=== PATIENT | male | born 1945 | race Caucasian/White ===

== ENCOUNTER 2018-06-23 13:15 | Inpatient (IN) | payer OTHER ==
[2018-06-23] MEDS ORDERED: LORazepam 2 MG/ML VIAL ONE (13:27)
[2018-06-23] MEDS ORDERED: FENTANYL CITR 100 MCG/2 ML ONE (13:28)
[2018-06-23] MEDS ORDERED: NA CHLORIDE 0.9% 1,000 ML ONE (13:30)
[2018-06-23 14:00] LABS: Protime INR 0.99
[2018-06-23 14:10] LABS: Absolute Lymphocytes (CBC) 2.6 K/uL (0.7-4.9); Absolute Monocytes 0.5 K/uL (0.1-1.3); Absolute Neutrophil 5.6 K/uL (1.8-8.0); Basophils % 0.4 % (0-1.3); Eosinophils % 3.4 % (0-4.4); Hematocrit 36.2 % (39.6-49.0); Lymphocytes % 28.4 % (15.3-44.8); MCH 33.8 pg (27.0-35.0); MPV 7.9 fL (7.6-11.3); RBC Red Blood Cell Count 3.63 M/uL (4.33-5.43)
--- NOTE | 2018-06-23 14:11 | RAD REPORT ---
EXAM DESCRIPTION: CT - Head Brain Wo Cont - 06/23/2018 2:01 pm CLINICAL HISTORY: Altered mental status, CPR COMPARISON: None. TECHNIQUE: Axial 5 mm thick images of the head were obtained without IV contrast. All CT scans are performed using dose optimization technique as appropriate and may include automated exposure control or mA/KV adjustment according to patient size. FINDINGS: No intracranial hemorrhage is present. There is no mass effect, edema or shift of midline structures. Patient has a moderate atrophy and chronic ischemic change pattern. Focally more prominen t schema changes are present in the left basal ganglia and anterior limb internal capsule. Baseline f or the patient is unknown. There is no finding for a diffuse anoxic brain injury. No cortical edema o r sulcal effacement. Ventricles are in proportion to volume loss. No acute cortical based infarction seen. No abnormal extra-axial fluid collections. Mastoid air cells are clear. No air-fluid level in the paranasal sinuses. There is nasal passage and ethmoid opacification. There is opacification in the oropharynx. This may be related to resuscitation efforts. No acute bony findings. IMPRESSION: No cerebral edema or other findings of anoxic brain injury. Patient has moderate severity atrophy and chronic ischemic change. Nonhemorrhagic CVA changes could b e masked by the chronic ischemic change. Nasal passage in oropharynx opacification likely related to resuscitation efforts.
[2018-06-23 14:12] LABS: Magnesium 1.9 mg/dL (1.8-2.4); Troponin I 0.06 ng/mL (0.0-0.045)
[2018-06-23] MEDS ORDERED: D5 0.45 NS 1,000 ML IV ONE (14:15)
--- NOTE | 2018-06-23 14:51 | RAD REPORT ---
EXAM DESCRIPTION: RAD - Chest Single View - 06/23/2018 2:20 pm CLINICAL HISTORY: CPR, respiratory arrest COMPARISON: None. TECHNIQUE: AP portable chest image was obtained 1336 hours . FINDINGS: Resuscitation paddles are in place. Lung volumes are low. Lung base atelectasis is present . No diffuse pulmonary edema. Right infrahilar region is prominent. This can be re-evaluated with a f ollow-up chest film is obtained. Endotracheal tube is in good position with the tip at the top of the aortic arch. Central vasculature and lung markings are accentuated by semi upright positioning and s hallow inspiration. No pneumothorax or large pleural effusion. No acute bony abnormality seen. No acu te aortic findings suspected. IMPRESSION: Endotracheal tube in good position. Bilateral lung base atelectasis without diffuse pulmonary edema. Focal density in the right hilar region is probably summation artifact due to exam limitations. This can be re-evaluated at the time of follow-up chest imaging.
[2018-06-23 15:04] LABS: Urine RBC TNTC /HPF (NONE SEEN)
[2018-06-23 15:05] LABS: Urine Amorphous Sediment 1+ /HPF (NONE SEEN); Urine Bacteria <20 /HPF (NONE SEEN); Urine Culture Reflex Order NOT NEEDED
[2018-06-23] MEDS ORDERED: NA CHLORIDE 0.9% 500 ML ONE (15:24)
[2018-06-23 16:17] LABS: Arterial Blood Carboxyhemoglob 0.2 % (0-1.5); Blood Gas Oxyhemoglobin 97.7 % (94-97)
[2018-06-23 16:19] LABS: Arterial Blood Carboxyhemoglob 0.4 % (0-1.5); Blood Gas Oxyhemoglobin 98.2 % (94-97); Blood O2 Saturation 99.5 % (92-98.5)
--- NOTE | 2018-06-23 16:58 | ER ---
Nurse's Notes [facility] Name: Nabor Garcia Jr Age: 72 yrs Sex: Male : 1945 Arrival Date: 06/23/2018 Time: 13:16 Bed 3 Private MD: Diagnosis: Cardiac arrest;Cardiac arrhythmia, unspecified;Dehydration Presentation: 06/23 13:11 Presenting complaint: EMS states: called out for CPR by bystander at [facility], pt was sv sitting in a chair with snoring respirations, manual compressions started while AED was attached, defibrillated x2. On EMS arrival, Respirations 8-12, with a pulse, GCS-3, Ketamine 150 mg, Versed 5 mg, Succinylcholine 112 mg, pt intubated size-7.5, 25 \T\ teeth, Fentanyl 75 mcg given after intubation, BS-183, 18G R AC. ROSC achieved DEFENSE TRAVEL ADMINISTRATOR of EMS. Care prior to arrival: Oral intubation, CPR manually performed by bystander was defibrillated IV initiated. 18 GA, in the right antecubital area, Glucose check: 183 Oxygen administered. via AMBU bag. Compressions began at 12:18. 13:11 Method Of Arrival: EMS: [facility] sv 13:25 Acuity: AMANDEEP 1 iw 13:30 Transition of care: patient was not received from another setting of care. Onset of sv symptoms was June 23, 2018. Risk Assessment: Do you want to hurt yourself or someone else? Unable to obtain. Initial Sepsis Screen: Does the patient meet any 2 criteria? Temp <36.0*C (96.8*F)) or > 38.3*C (100.9*F). Yes Does the patient have a suspected source of infection? No. Patient's initial sepsis screen is negative. Historical: - Allergies: 13:48 Unable to obtain; sv - Home Meds: 13:48 Unable to obtain [Active]; sv - PMHx: 13:48 Unable to obtain; sv - PSHx: 13:48 Unable to obtain; sv - Immunization history:: Adult Immunizations unknown. - Social history:: Smoking status: unknown. - Ebola Screening: : Unable to complete screening because patient is unresponsive, patient is intubated. - Family history:: not pertinent. - Hospitalizations: : No recent hospitalization is reported. Screenin:47 Abuse screen: unknown. Nutritional screening: unknown. Tuberculosis screening: unknown. sv Fall Risk No fall in past 12 months (0 pts). Secondary diagnosis (15 points) impaired mobility, intubated. IV access (20 points). Ambulatory Aid- None/Bed Rest/Nurse Assist (0 pts). Gait- Impaired (20 pts.). Mental Status- Overestimates/Forgets Limitations (15 pts.). Total Alcantar Fall Scale indicates High Risk Score (45 or more points). Fall prevention measures have been instituted. Side Rails Up X 2 Placed Close to Nursing Station Frequent Obs/Assessments Occuring As available patient and family educated on Fall Prevention Program and Strategies. Assessment: 13:12 CPR assessment: unresponsive, no respiratory effort, intubated, Ambu ventilation. sv Cardiac rhythm is SR. General: Appears ill, Behavior is unresponsive. intubated. Neuro: Level of Consciousness is unresponsive, Oriented to none intubated. EENT: appears pt bit his upper lip and tongue. Respiratory: Airway via oral intubation Respiratory effort is even, Respiratory pattern is symmetrical. Derm: Skin is pale. 13:46 Reassessment: Ok to place Barehugger per Dr Kearney. sv 14:00 Reassessment: Patient appears in no apparent distress at this time. No changes from sv previously documented assessment. Pt remains intubated. NGT and OGT attempted x 4 by myself and AISHA Thompson RN but unsuccessful. 14:19 Reassessment: Dr Kearney and Cely QUIROZ at bedside to placed central line. sv 14:25 Reassessment: IVF placed on an IV warmer. sv 14:37 Reassessment: Notified PARISA LEONARD of a critical lab alert for Lactate of 4.8. rb1 15:00 Reassessment: Patient appears in no apparent distress at this time. No changes from sv previously documented assessment. Pt remains intubated. 15:44 Reassessment: Stormy at bedside getting a repeat ABG. sv 16:00 Reassessment: Pt's sister Marilia Womack is at bedside. . Pt's friend wolfgang stated she witnessed everything. Stated that he was carrying a box of books and stated that he needed to sit down because he didn't feel good, she turned around away from him and then heard him snoring and she turned back around and saw his eyes roll back. They put him on the ground and he did not have a pulse, they called 911 while someone was getting the AED. 16:27 Reassessment: Dr Kearney at bedside speaking with family. sv 16:28 Reassessment: Patient appears in no apparent distress at this time. No changes from sv previously documented assessment. Pt remains intubated. 17:10 Reassessment: Patient appears in no apparent distress at this time. Pt diaphoretic, sv Rectal temp 96.9. Informed Dr Kearney. 18:08 Reassessment: Patient appears in no apparent distress at this time. No changes from sv previously documented assessment. Pt remains intubated. 18:30 Reassessment: Pt awake and attempting to get out of bed. Dr Kearney called to bedside. Pt sv is confused. Medication orders received. 18:40 Reassessment: Patient appears in no apparent distress at this time. Dr Arauz informed sv pt had woken up, stated Dr Kearney had informed her as well. 18:52 Reassessment: Carotid doppler being done at this time. sv 19:10 General: Appears. Pain: Unable to use pain scale. Patient is intubated. rr5 19:10 Neuro: Level of Consciousness is unresponsive, Oriented to none. Cardiovascular: rr5 Capillary refill < 3 seconds Patient's skin is warm and dry. Respiratory: Airway via oral intubation Respiratory effort is even, Respiratory pattern is symmetrical. GI: Abdomen is flat. GI: Oral gastric tube in place, Site clean. : Garcia in place. EENT: No signs and/or symptoms were reported regarding the EENT system. Derm: Skin is pale. Musculoskeletal: No signs and/or symptoms reported regarding the musculoskeletal system. Vital Signs: 13:12 BP 115 / 80; Pulse 88; Resp 16; Pulse Ox 98% on BVM; sv 13:25 BP 113 / 75; Pulse 82; Resp 16 A; Pulse Ox 100% on ETT vent; iw 13:30 BP 107 / 74; Pulse 86; Resp 14; Temp 95.5(C); Pulse Ox 100% on ETT vent; sv 14:05 BP 103 / 70; Pulse 77; Resp 18; Temp 94.8(C); Pulse Ox 100% on 100% FiO2 ETT vent; ph 15:00 BP 144 / 91; Pulse 78; Resp 16; Temp 95(C); Pulse Ox 100% on 100% FiO2 ETT vent; sv 15:30 BP 148 / 96; Pulse 81; Resp 16; Temp 95.4(C); Pulse Ox 100% on 100% FiO2 ETT vent; sv 16:15 BP 143 / 92; Pulse 79 MON; Resp 16; Temp 96.3(C); Pulse Ox 100% on 40% FiO2 ETT vent; sv 16:33 BP 160 / 94; Pulse 84; Resp 16; Temp 96.6(C); Pulse Ox 99% on 40% FiO2 ETT vent; sv 17:11 BP 162 / 97; Pulse 82; Resp 16; Temp 97(C); Pulse Ox 100% on 40% FiO2 ETT vent; sv 17:26 BP 142 / 89; Pulse 75; Resp 16; Temp 97; Pulse Ox 100% on 40% FiO2 ETT vent; sv 18:00 BP 133 / 89; Pulse 72; Resp 16; Temp 97.1(C); Pulse Ox 100% on 40% FiO2 ETT vent; sv 18:41 Weight 90 kg; ph 18:45 BP 121 / 84; Pulse 66; Resp 16; Temp 97.2(C); Pulse Ox 100% on 40% FiO2 ETT vent; sv 19:10 BP 118 / 77; Pulse 63; Resp 16; Temp 97.3; Pulse Ox 100% on ETT vent; rr5 19:15 BP 120 / 84; Pulse 65; Resp 16 A; Temp 97.2(C); Pulse Ox 100% on ETT vent; tl2 19:30 BP 119 / 88; Pulse 65; Resp 16; Temp 97.2(C); Pulse Ox 100% on ETT vent; tl2 19:45 BP 129 / 87; Pulse 69; Resp 16; Temp 97.4(C); Pulse Ox 100% on ETT vent; tl2 20:00 BP 130 / 83; Pulse 67; Resp 16; Temp 97.4(C); Pulse Ox 100% on ETT vent; tl2 20:26 BP 144 / 93; Pulse 75; Resp 16; Pulse Ox 100% ; rr5 16:15 Sinus Rhythm sv Tyler Coma Score: 13:20 Eye Response: none(1). Verbal Response: none(1). Motor Response: none(1). Modifying sv Factors: Intubated. Total: 3. 15:39 Eye Response: none(1). Verbal Response: none(1). Motor Response: withdraws from rn pain(4). Total: 6. 16:31 Eye Response: none(1). Verbal Response: none(1). Motor Response: none(1). Modifying sv Factors: Intubated. Total: 3. 18:08 Eye Response: none(1). Verbal Response: none(1). Motor Response: none(1). Modifying sv Factors: Intubated. Total: 3. 19:10 Eye Response: none(1). Verbal Response: none(1). Motor Response: none(1). Total: 3. rr5 ED Course: 13:11 Maintain EMS IV. Dressing intact. Good blood return noted. Site clean \T\ dry. Gauge \T\ sv site: 18G R AC. 13:12 desk monitor on. Pulse ox on. NIBP on. Warm blanket given. Head of bed elevated. sv 13:16 Patient arrived in ED. rn 13:16 Vimal Kearney MD is Attending Physician. rn 13:16 Andree Mendiola RN is Primary Nurse. sv 13:20 Initial lab(s) drawn, by ED staff, sent to lab. sv 13:25 Triage completed. iw 13:25 Garcia cath inserted, using sterile technique, 16 Fr., by assembler crimper, balloon inflated, to sv gravity drainage, returned lee urine. Criticore. 13:25 Patient has correct armband on for positive identification. Placed in gown. Bed in low sv position. Side rails up X2. 13:30 Arm band placed on. sv 13:39 EKG done, by educational technologist. reviewed by Vimal Kearney MD. at1 13:45 Thermoregulation: Angel blanket applied. ph 14:20 Chest Single View Sent. sv 14:20 Head Brain Wo Cont Sent. sv 14:30 Assisted provider with central line placement. Set up central line tray. Triple lumen sv line placed in right femoral. Line placed by Cely ALVAREZ Placement verified by blood return, Dressed with Tegaderm, Blood was collected. Patient tolerated well. Before procedure, did Practitioner(s) obtain informed consent? No. Patient \T\ family education about procedure, CLABSI prevention and S/S of infection? No. Time-out/Briefing performed prior to start of procedure? Yes. Was handwashing/sanitizing done immediately prior to procedure? Yes. Was patient positioned to in a way to prevent air embolism? Yes. Was procedure site sterilized? Yes, with chlorhexidine. Was the site allowed to dry? Yes. Was local anesthetic and/or sedation utilized? Yes. During the procedure, did the Practitioner(s) maintain a sterile field? Yes. Were unused ports clamped during insertion? Yes. Was a 2nd qualified MD obtained after 3 unsuccessful insertion attempts? Yes. Was blood aspirated from each lumen? Yes. After the procedure, did the Practitioner(s) clean the site and apply a sterile dressing? Yes. 14:40 Head Brain Wo Cont In Process Unspecified. EDMS 14:42 Chest Single View In Process Unspecified. EDMS 15:30 NGT: inserted 14 Fr. other orally verified placement of air over stomach, verified sv return of gastric contents, done by Dr Kearney to intermittent suction. returned brown fluid. 15:42 Urine Culture Sent. sv 15:42 Blood Culture Sent. sv 16:00 One-on-one care X 180 minutes. sv 16:12 EKG done, by educational technologist. reviewed by Vimal Kearney MD. dt2 16:58 Dwayne Arauz DO is Hospitalizing Provider. rn 16:58 Janel Arauz MD is Hospitalizing Provider. rn 17:26 Awaiting bed assignment. sv 19:06 Report given to Lm MCCAULEY. sv 19:07 Primary Nurse role handed off by Andree Mendiola, PARISA sv 19:47 Lm Mehta, PARISA is Primary Nurse. rr5 20:26 Patient admitted, IV remains in place. intact, bleeding controlled, No redness/swelling rr5 at site. Restraints: 18:30 Non-Violent Restraint: Order obtained. Initiated on June 23, 2018 at 18:30 sv Restraint Education provided to family/significant other/legally authorized patient portal representative. Actions/Behavior observed: Confused/disoriented, has difficulty remembering/follow instructions, has impaired decision making, repeated attempts to get up from bed/chair w/o assistance, has decreased level of consciousness, unable to follow instructions, repeated attempts to remove/tamper lines/tubes/IV med devices \T\ wound dressing, repeated attempts to remove artifical airway/mechanical resp support, Less restrictive alternatives attempted: 1:1 patient care, reoriented to location, Alternative interventions: Ineffective. Clinical justification for use: airway protection, line protection, patient safety, Mental status: agitated/restless, confused, Cognition: poor judgement, poor safety awareness, impulsive, poor attention/concentration, unable to follow commands, short term memory loss, Circulation: Within defined parameters (based on Cardiovascular assessment) Skin integrity: Within defined parameters (based on Integumentary assessment) Signs of injury related to restraint: No injuries noted. Restraint status: Side rails up x 4 Started. Soft wrist restraint (Right) Started. Soft wrist restraint (Left) Started. Soft ankle restraint (Right) Started. Soft ankle restraint (Left) Started. 19:10 Non-Violent Restraint: Order Initiated on June 23, 2018 at 18:30 Restraint rr5 Education provided to family/significant other/legally authorized patient portal representative. Actions/Behavior observed: Confused/disoriented, has difficulty remembering/follow instructions, has impaired decision making, repeated attempts to get up from bed/chair w/o assistance, has decreased level of consciousness, unable to follow instructions, repeated attempts to remove/tamper lines/tubes/IV med devices \T\ wound dressing, repeated attempts to remove artifical airway/mechanical resp support, Less restrictive alternatives attempted: 1:1 patient care, reoriented to location, family at bedside, Alternative interventions: Ineffective. Clinical justification for use: airway protection, line protection, patient safety, Mental status: agitated/restless, confused, Cognition: poor judgement, poor safety awareness, impulsive, poor attention/concentration, unable to follow commands, short term memory loss, Circulation: Within defined parameters (based on Cardiovascular assessment) Skin integrity: Within defined parameters (based on Integumentary assessment) Signs of injury related to restraint: No injuries noted. Restraint status: Side rails up x 4 Soft wrist restraint (Right) Continued. Soft wrist restraint (Left) Continued. Soft ankle restraint (Right) Continued. Soft ankle restraint (Left). Administered Medications: 13:20 Drug: Ativan 1 mg Route: IVP; Site: right antecubital; ph 14:21 Follow up: Response: No adverse reaction sv 13:20 Drug: fentaNYL (PF) 75 mcg Route: IVP; Site: right antecubital; ph 14:21 Follow up: Response: No adverse reaction sv 13:24 Drug: NS 0.9% 1000 ml Route: IV; Rate: 1000 ml; Site: right antecubital; iw 14:00 Follow up: Response: No adverse reaction; IV Status: Completed infusion; IV Intake: sv 1000ml 14:15 Drug: D5-1/2 NS 1000 ml Route: IV; Rate: 125 ml/hr; Site: right antecubital; sv 20:40 Follow up: IV Status: Infusion continued upon admission rr5 18:35 Drug: Propofol 40 mg Route: IVP; Site: right femoral; ph 18:44 Follow up: Response: No adverse reaction; Patient is sedated ph 18:40 Drug: Propofol 5 mcg/kg/min {Note: initiated at 15 mcg/kg/min.} Route: IV; Rate: ph calculated rate; Site: right femoral; 20:40 Follow up: IV Status: Infusion continued upon admission rr5 Point of Care Testing: Blood Glucose: 13:20 Blood Glucose: 225 mg/dL; iw Ranges: Intake: 14:00 IV: 1000ml; Total: 1000ml. sv Output: 18:27 Urine: 700ml (Garcia); Total: 700ml. sv Ventilator: 16:15 Fi02: 40%; Rate: 16min; T.V.: 550ml; Peep: 5cm; Mode: CMV; sv 16:15 24-teeth sv Outcome: 16:58 Decision to Hospitalize by Provider. rn 20:15 Admitted to ICU accompanied by nurse, via stretcher, with oxygen, on monitor, Report rr5 called to iban RN 20:15 Condition: stable 20:15 Instructed on the need for admit. rr5 20:26 Outcome admitted to ICU rr5 20:50 Patient left the ED. rr5 Signatures: Dispatcher [employer] EDMS Andree Mendiola RN RN sv Williams, Irene, RN RN iw Vimal Kearney MD MD rn Gonzales, Amanda, can cleaner EKG Tat1 Nayely Gonzalez RN RN ph Sharron Katz, RN RN rb1 Annette Damon RN RN tl2 Phoebe Abel dt2 Lm Mehta RN RN rr5 Corrections: (The following items were deleted from the chart) 14:24 13:11 Presenting complaint: EMS states: called out for CPR by bystander at [facility], pt sv was sitting in a chair with snoring respirations, manual compressions started while AED was attached, defibrillated x2. On EMS arrival, Respirations 8-12, with a pulse, GCS-3, Ketamine 150 mg, Versed 5 mg, Succinylcholine 112 mg, pt intubated size-7.5, 25 \T\ teeth, Fentanyl 75 mcg given after intubation, BS-183, 18G R AC. sv 14:25 14:24 Ebola Screening: Unable to complete screening because sv sv 16:30 14:00 Reassessment: Patient appears in no apparent distress at this time. No changes sv from previously documented assessment. Pt remains intubated sv 16:35 16:00 Reassessment: Pt's sister Marilia Womack is at bedside. . sv sv 20:26 20:00 BP 144 / 93; Pulse 75bpm; Resp 16bpm; Pulse Ox 100%; rr5 rr5
--- NOTE | 2018-06-23 16:59 | EDPHYS ---
Physician Documentation [facility] Name: Nabor Garcia Jr Age: 72 yrs Sex: Male : 1945 Arrival Date: 06/23/2018 Time: 13:16 Bed 3 Private MD: ED Physician Vimal Kearney HPI: 06/23 15:39 This 72 yrs old Male presents to ER via EMS with complaints of CPR - with rn ROSC. 15:39 Preceding the arrest, the patient collapsed. The arrest occurred moravian. Pre-hospital rn course: The arrest was witnessed Bystanders at the scene performed CPR. EMS care prior to arrival: initiation of ACLS, intubation oxygen. The patient has not experienced similar symptoms in the past. Bystanders called 911 because was seated, began snoring, unresponsive, laid him down, began cpr, hooked up AED that recommended shock, administered shock, and 911 arrived, had pulse for EMS, normal rhythm, intubated prior to arrival. . Historical: - Allergies: 13:48 Unable to obtain; sv - Home Meds: 13:48 Unable to obtain [Active]; sv - PMHx: 13:48 Unable to obtain; sv - PSHx: 13:48 Unable to obtain; sv - Immunization history:: Adult Immunizations unknown. - Social history:: Smoking status: unknown. - Ebola Screening: : Unable to complete screening because patient is unresponsive, patient is intubated. - Family history:: not pertinent. - Hospitalizations: : No recent hospitalization is reported. ROS: 15:39 Unable to obtain ROS due to comatose state. rn Exam: 15:39 Constitutional: Thin male, minimally responsive to painful stimuli Head/Face: rn Normocephalic, atraumatic. ENT: + oral blood (presumably from EMS intubation) Cardiovascular: Regular rate and rhythm No pulse deficits. Respiratory: + coarse bilateral breath sounds Abdomen/GI: soft, non-tender, non-distended MS/ Extremity: Pulses equal, no cyanosis. + mottled extremities Neuro: Intubated and sedated (versed and ketamine), withdraws from pain and grimaces, but does not localize Vital Signs: 13:12 BP 115 / 80; Pulse 88; Resp 16; Pulse Ox 98% on BVM; sv 13:25 BP 113 / 75; Pulse 82; Resp 16 A; Pulse Ox 100% on ETT vent; iw 13:30 BP 107 / 74; Pulse 86; Resp 14; Temp 95.5(C); Pulse Ox 100% on ETT vent; sv 14:05 BP 103 / 70; Pulse 77; Resp 18; Temp 94.8(C); Pulse Ox 100% on 100% FiO2 ETT vent; ph 15:00 BP 144 / 91; Pulse 78; Resp 16; Temp 95(C); Pulse Ox 100% on 100% FiO2 ETT vent; sv 15:30 BP 148 / 96; Pulse 81; Resp 16; Temp 95.4(C); Pulse Ox 100% on 100% FiO2 ETT vent; sv 16:15 BP 143 / 92; Pulse 79 MON; Resp 16; Temp 96.3(C); Pulse Ox 100% on 40% FiO2 ETT vent; sv 16:33 BP 160 / 94; Pulse 84; Resp 16; Temp 96.6(C); Pulse Ox 99% on 40% FiO2 ETT vent; sv 17:11 BP 162 / 97; Pulse 82; Resp 16; Temp 97(C); Pulse Ox 100% on 40% FiO2 ETT vent; sv 17:26 BP 142 / 89; Pulse 75; Resp 16; Temp 97; Pulse Ox 100% on 40% FiO2 ETT vent; sv 18:00 BP 133 / 89; Pulse 72; Resp 16; Temp 97.1(C); Pulse Ox 100% on 40% FiO2 ETT vent; sv 18:41 Weight 90 kg; ph 18:45 BP 121 / 84; Pulse 66; Resp 16; Temp 97.2(C); Pulse Ox 100% on 40% FiO2 ETT vent; sv 19:10 BP 118 / 77; Pulse 63; Resp 16; Temp 97.3; Pulse Ox 100% on ETT vent; rr5 19:15 BP 120 / 84; Pulse 65; Resp 16 A; Temp 97.2(C); Pulse Ox 100% on ETT vent; tl2 19:30 BP 119 / 88; Pulse 65; Resp 16; Temp 97.2(C); Pulse Ox 100% on ETT vent; tl2 19:45 BP 129 / 87; Pulse 69; Resp 16; Temp 97.4(C); Pulse Ox 100% on ETT vent; tl2 20:00 BP 130 / 83; Pulse 67; Resp 16; Temp 97.4(C); Pulse Ox 100% on ETT vent; tl2 20:26 BP 144 / 93; Pulse 75; Resp 16; Pulse Ox 100% ; rr5 16:15 Sinus Rhythm sv Gormania Coma Score: 13:20 Eye Response: none(1). Verbal Response: none(1). Motor Response: none(1). Modifying sv Factors: Intubated. Total: 3. 15:39 Eye Response: none(1). Verbal Response: none(1). Motor Response: withdraws from rn pain(4). Total: 6. 16:31 Eye Response: none(1). Verbal Response: none(1). Motor Response: none(1). Modifying sv Factors: Intubated. Total: 3. 18:08 Eye Response: none(1). Verbal Response: none(1). Motor Response: none(1). Modifying sv Factors: Intubated. Total: 3. 19:10 Eye Response: none(1). Verbal Response: none(1). Motor Response: none(1). Total: 3. rr5 Ventilator: 16:15 Fi02: 40%; Rate: 16min; T.V.: 550ml; Peep: 5cm; Mode: CMV; sv 16:15 24-teeth sv Procedures: 15:13 Central Line: the site was prepped with in sterile fashion, chlorhexidine, a triple kb lumen catheter was inserted, in the right femoral vein, in 1 attempts. placement was verified, by blood return, the site was dressed with Tegaderm, using sterile technique, the patient tolerated the procedure, well. MDM: 13:16 Patient medically screened. rn 16:57 Differential diagnosis: arrythmia, cardiac arrest, respiratory arrest. Data reviewed: rn vital signs, nurses notes, lab test result(s), EKG, radiologic studies, CT scan, plain films, and as a result, I will admit patient. Counseling: I had a detailed discussion with the patient and/or guardian regarding: the historical points, exam findings, and any diagnostic results supporting the discharge/admit diagnosis, lab results, radiology results, the need for further work-up and treatment in the hospital. Response to treatment: the patient's symptoms have mildly improved after treatment, and as a result, I will admit patient. Admission orders: after a detailed discussion of the patient's condition and case, the admit orders are written by me. ED course: Admitted to Dr. Arauz, spoke with her \T\ [id number], admitted to ICU. . 06/23 13:18 Order name: Blood Culture Adult (2) rn 06/23 13:19 Order name: ABG rn 06/23 13:20 Order name: glucometer results - FOR PT WITH NO ID 06/23 13:31 Order name: Urine Dipstick--Ancillary (enter results) 06/23 13:40 Order name: ABG Arterial Blood Gas; Complete Time: 16:20 EDUT 06/23 13:44 Order name: Basic Metabolic Panel; Complete Time: 14:47 EDUT 06/23 13:44 Order name: Troponin I; Complete Time: 14:47 EDUT 06/23 13:44 Order name: Magnesium; Complete Time: 14:47 [facility] 06/23 13:44 Order name: Lactate; Complete Time: 14:47 [facility] 06/23 13:44 Order name: CBC with Automated Diff; Complete Time: 14:47 [facility] 06/23 13:44 Order name: Protime (+INR); Complete Time: 14:47 [facility] 06/23 13:44 Order name: PTT, Activated Partial Thromb; Complete Time: 14:47 EDUT 06/23 14:42 Order name: Blood Culture [facility] 06/23 14:43 Order name: Urine Microscopic Only; Complete Time: 15:38 [facility] 06/23 14:43 Order name: Urine Culture [facility] 06/23 15:02 Order name: Lactate; Complete Time: 15:59 06/23 15:33 Order name: ABG; Complete Time: 16:54 06/23 17:54 Order name: Thyroid Stimulating Hormone EDUT 06/23 17:54 Order name: Comprehensive Metabolic Panel [facility] 06/23 17:55 Order name: Comprehensive Metabolic Panel [facility] 06/23 13:41 Order name: Head Brain Wo Cont; Complete Time: 14:47 [facility] 06/23 13:41 Order name: Chest Single View; Complete Time: 14:58 EDUT 06/23 17:55 Order name: Comprehensive Metabolic Panel [facility] 06/23 17:55 Order name: Comprehensive Metabolic Panel [facility] 06/23 17:55 Order name: Creatine Phosphokinase [facility] 06/23 17:55 Order name: Creatine Phosphokinase EDMS 06/23 17:55 Order name: Creatine Phosphokinase EDMS 06/23 17:55 Order name: Creatine Phosphokinase EDMS 06/23 17:55 Order name: Lactate EDMS 06/23 17:55 Order name: Lactate EDMS 06/23 17:55 Order name: Lipid Profile EDMS 06/23 17:55 Order name: Lipid Profile EDMS 06/23 17:55 Order name: Magnesium EDMS 06/23 17:55 Order name: Magnesium EDMS 06/23 17:55 Order name: Magnesium EDMS 06/23 17:55 Order name: Magnesium EDMS 06/23 17:55 Order name: Phosphorus EDMS 06/23 17:55 Order name: Phosphorus EDMS 06/23 17:55 Order name: Phosphorus EDMS 06/23 17:55 Order name: Phosphorus EDMS 06/23 17:55 Order name: PTT, Activated Partial Thromb EDMS 06/23 17:55 Order name: PTT, Activated Partial Thromb EDMS 06/23 17:55 Order name: PTT, Activated Partial Thromb EDMS 06/23 17:55 Order name: PTT, Activated Partial Thromb EDMS 06/23 17:55 Order name: Troponin I EDMS 06/23 17:55 Order name: Troponin I EDMS 06/23 17:55 Order name: Troponin I EDMS 06/23 17:56 Order name: Troponin I EDMS 06/23 20:10 Order name: US EDMS 06/23 13:18 Order name: EKG; Complete Time: 14:59 rn 06/23 13:18 Order name: Cardiac monitoring; Complete Time: 14:19 rn 06 13:18 Order name: EKG - Nurse/Tech; Complete Time: 14:19 rn 06 13:18 Order name: IV Saline Lock; Complete Time: 14:19 rn 06 13:18 Order name: Labs collected and sent; Complete Time: 14:19 rn 06 13:18 Order name: NPO; Complete Time: 14:19 rn 06 13:18 Order name: O2 Per Protocol; Complete Time: 14:19 rn 06 13:18 Order name: O2 Sat Monitoring; Complete Time: 14:19 rn 06/23 13:18 Order name: Urine Dipstick-Ancillary (obtain specimen); Complete Time: 14:19 rn 06/23 17:23 Order name: EKG Electrocardiogram EDMS 06/23 17:54 Order name: CONS Physician Consult EDMS 06/23 17:54 Order name: CONS Physician Consult EDMS 06/23 18:45 Order name: Restraint:Non-Violent; Complete Time: 18:45 sv Administered Medications: 13:20 Drug: Ativan 1 mg Route: IVP; Site: right antecubital; ph 14:21 Follow up: Response: No adverse reaction sv 13:20 Drug: fentaNYL (PF) 75 mcg Route: IVP; Site: right antecubital; ph 14:21 Follow up: Response: No adverse reaction sv 13:24 Drug: NS 0.9% 1000 ml Route: IV; Rate: 1000 ml; Site: right antecubital; iw 14:00 Follow up: Response: No adverse reaction; IV Status: Completed infusion; IV Intake: sv 1000ml 14:15 Drug: D5-1/2 NS 1000 ml Route: IV; Rate: 125 ml/hr; Site: right antecubital; sv 20:40 Follow up: IV Status: Infusion continued upon admission rr5 18:35 Drug: Propofol 40 mg Route: IVP; Site: right femoral; ph 18:44 Follow up: Response: No adverse reaction; Patient is sedated ph 18:40 Drug: Propofol 5 mcg/kg/min {Note: initiated at 15 mcg/kg/min.} Route: IV; Rate: ph calculated rate; Site: right femoral; 20:40 Follow up: IV Status: Infusion continued upon admission rr5 Point of Care Testing: Blood Glucose: 13:20 Blood Glucose: 225 mg/dL; iw Ranges: Critical Glucose Levels:Adult <50 mg/dl or >400 mg/dl <40 mg/dl or >180 mg/dl Disposition: 16:57 Critical Care:. rn Disposition: 06/23/18 16:58 Hospitalization ordered by Janel Arauz for Inpatient Admission. Preliminary diagnosis are Cardiac arrest, Cardiac arrhythmia, unspecified, Dehydration. - Bed requested for Intensive Care Unit. - Status is Inpatient Admission. rr5 - Condition is Fair. - Problem is new. - Symptoms have improved. UTI on Admission? No Critical care time excluding procedures: 16:57 Critical care time: Bedside Care: 25 minutes, Consultation: 5 minutes, Family rn Intervention: 10 minutes. Total time: 40 minutes Addendum: 06/27/2018 07:02 Co-signature as Attending Physician, Vimal Kearney MD. r n Signatures: Dispatcher [employer] EDUT Cely Charlton FNP-C WINDER TENDER-Andree Ritter, RN Jayla Feliz RN Jocy Perdomo RN RN iw Nieto, Roman, MD MD rn Hall, Patricia, RN RN Lm Mehta RN RN rr5 Corrections: (The following items were deleted from the chart) 12 13:45 13:44 Blood Culture ordered. EDUT EDMS 14:25 14:24 Ebola Screening: Unable to complete screening because sv sv 15:06 14:59 Chest Single View+RAD.RAD.BRZ ordered. EDUT EDMS 15:08 14:58 Head Brain Wo Cont+CT.RAD.BRZ ordered. EDUT EDMS 15:18 14:59 BASIC METABOLIC PANEL+C.LAB.BRZ ordered. EDUT EDMS 15:19 14:59 CBC+H.LAB.BRZ ordered. EDUT EDMS 15:19 14:59 MAGNESIUM+C.LAB.BRZ ordered. EDUT EDMS 15:19 14:59 PROTIME (+INR)+COAG.LAB.BRZ ordered. EDUT EDMS 15:19 14:59 PTT, ACTIVATED+COAG.LAB.BRZ ordered. EDUT EDMS 15:19 14:59 TROPONIN (EMERG DEPT USE ONLY)+C.LAB.BRZ ordered. EDUT EDMS 15:19 15:02 UA MICROSCOPIC+U.LAB.BRZ ordered. EDUT EDMS 15:21 14:59 LACTATE+C.LAB.BRZ ordered. EDUT EDMS 15:21 15:02 Urine Culture+BA.LAB.BRZ ordered. EDUT EDMS 18:43 16:58 Hospitalization Ordered by Janel Arauz MD for Inpatient Admission. Preliminary dw diagnosis is Cardiac arrest; Cardiac arrhythmia, unspecified; Dehydration. Bed requested for Intensive Care Unit. Status is Inpatient Admission. Condition is Fair. Problem is new. Symptoms have improved. UTI on Admission? No. rn 20:50 18:43 06/23/2018 16:58 Hospitalization Ordered by Janel Arauz MD for Inpatient rr5 Admission. Preliminary diagnosis is Cardiac arrest; Cardiac arrhythmia, unspecified; Dehydration. Bed requested for Intensive Care Unit. Status is Inpatient Admission. Condition is Fair. Problem is new. Symptoms have improved. UTI on Admission? No. dw
[2018-06-23] MEDS ORDERED: ONDANSETRON 4 MG/2 ML VIAL IV PRN (17:50)
[2018-06-23] MEDS ORDERED: D50W 25 GM/50 ML SYRINGE IV PRN (17:57)
[2018-06-23] MEDS ORDERED: GLUCAGON 1 MG/VIAL IM PRN (17:57)
[2018-06-23] MEDS ORDERED: FENTANYL CITR 100 MCG/2 ML IV PRN (17:59)
[2018-06-23] MEDS ORDERED: MIDAZOLAM HCL 2 MG/2 ML INJ IV PRN (17:59)
--- NOTE | 2018-06-23 18:20 | P.HP ---
Certification for Inpatient Patient admitted to: Inpatient With expected LOS: >2 Midnights Patient will require the following post-hospital care: None Practitioner: I am a practitioner with admitting privileges, knowledge of patient current condition, hospital course, and medical plan of care. Services: Services provided to patient in accordance with Admission requirements found in Title 42 Section 412.3 of the Code of Federal Regulations Patient History Date of Service: 06/23/18 Primary Care Provider: Unknown Reason for admission: Cardiopulomary Arrest History of Present Illness: This is a 72-year-old male with unknown past medical history who presented to the ER, the nearby charge. Most of the history was collected via the ER physician and the EMS report along with the family member at bedside. Patient was noted to be at the taoism this afternoon where he had a witness cardiopulmonary arrest CPR was initiated by a bystander due to no pulse on an AED pad was connected to the patient. He d advised for a shock and patient was given an shock x1 in the chart. EMS then arrived at the scene where patient is GCS was less than 3 and patient was thus intubated at that time. Patient then was brought to the ER for further care. Patient does not have any other family member other than his [id number] at bedside at this time. Patient's in December of cancer. Patient was doing okay and was in general health according to the family member at bedside. In the ER patient remained intubated and sedated. Initial lab work was inconclusive and patient was admitted to the hospital for further workup and treatment for is cardiopulmonary arrest. Review of Systems 10-point ROS is otherwise unremarkable Physical Examination - Physical Exam General: Other (Intubated and sedated) HEENT: Atraumatic Neck: Supple, JVD not distended Respiratory: Normal air movement, Rhonchi/gurgles Cardiovascular: Regular rate/rhythm, Normal S1 S2 Gastrointestinal: Normal bowel sounds, Soft and benign, Non-distended Musculoskeletal: No clubbing, No swelling Integumentary: No rashes Neurological: Other (Pupils are sluggish, no cough reflex noted, patient not responding to painful stimuli at this time), Abnormal cranial nerve function, Abnormal reflexes - Studies Laboratory Data (last 24 hrs) 06/23/18 13:20: PT 11.7, INR 0.99, APTT 25.7 06/23/18 13:20: WBC 9.0, Hgb 12.3 L, Hct 36.2 L, Plt Count 189 06/23/18 13:20: Sodium 140, Potassium 4.0, BUN 19 H, Creatinine 1.60 H, Glucose 229 H, Magnesium 1.9, Troponin I 0.06 H 06/23/18 13:18: PT Cancelled, INR Cancelled, APTT Cancelled 06/23/18 13:18: WBC Cancelled, Hgb Cancelled, Hct Cancelled, Plt Count Cancelled 06/23/18 13:18: Sodium Cancelled, Potassium Cancelled, BUN Cancelled, Creatinine Cancelled, Glucose Cancelled, Magnesium Cancelled Assessment and Plan - Problems (Diagnosis) (1) Cardiopulmonary arrest Current Visit: Yes Status: Acute Plan: Witness cardiopulmonary arrest with successful resuscitation -patient currently intubated and sedated -will continue on mechanical ventilator at this time -pulmonology, cardiology, neurology is consulted at this -differential diagnosis include PE, NC, stroke, infectious etiology -will get CT of the head, echocardiogram, carotid Doppler, V/Q scan, MRI stroke protocol to rule out any did acute abnormality -patient placed on vent protocol at this time -Pepcid b.i.d. as well for GI prophylaxis -weight based Lovenox q.12 hr for possible PE (2) Acute respiratory failure Current Visit: Yes Status: Acute Plan: Hypoxic respiratory failure status post cardiopulmonary arrest status post shock x1 with successful resuscitation -See # 1 Qualifiers: Respiratory failure complication: hypoxia Qualified Code(s): J96.01 - Acute respiratory failure with hypoxia (3) HTN (hypertension) Current Visit: Yes Status: Chronic Qualifiers: Hypertension type: essential hypertension Qualified Code(s): I10 - Essential (primary) hypertension - Plan Will admit patient to the ICU for further care of his cardiopulmonary arrest. Initial head CT in the ER negative for any anoxic brain injury or edema. Will repeat in 48-72 hr here in the hospital. Discharge Plan: Other Plan to discharge in: Greater than 2 days - Advance Directives Does patient have a Living Will: No Does patient have a Durable POA for Healthcare: No - Code Status/Comfort Care Code Status Assessed: Yes Critical Care: Yes
[2018-06-23] MEDS ORDERED: PROPOFOL 1,000 MG/100 ML VIAL IV ONE (18:41)
[2018-06-23] MEDS ORDERED: PROPOFOL 1,000 MG/100 ML VIAL IV PRN (18:47)
[2018-06-23 19:29] LABS: Urine Blood 3+ (NEG); Urine Glucose TRACE (NEG); Urine Protein 2+ (NEG)
--- NOTE | 2018-06-23 19:36 | RAD REPORT ---
EXAM DESCRIPTION: US - CP - 06/23/2018 7:21 pm CLINICAL HISTORY: Cardiopulomary Arrest CVA COMPARISON: No comparisons TECHNIQUE: Real-time sonographic evaluation of both carotid systems was performed. Doppler interroga tion was performed with waveform tracing bilaterally. FINDINGS: Due to the patient's clinical status, the study was very limited. Mild hard plaque present in both carotid bulbs. Peak systolic and end diastolic velocity values and t he ICA/CCA ratios are in the non-hemodynamically significant range. Antegrade flow seen in both vertebral arteries. IMPRESSION: Very limited study was submitted due to the patient's current clinical status. Mild hard plaque is seen in both carotid bulbs. No hemodynamically significant stenosis is identified.
[2018-06-23] MEDS: INSULIN -REGULAR HUMAN 50 UNIT/0.5 ML ML SQ SCH (21:00)
[2018-06-23] MEDS: ENOXAPARIN 80 MG/0.8 ML SQ SCH (22:17)
[2018-06-23] MEDS: FAMOTIDINE 20 MG/2 ML VIAL IV SCH (22:17)
[2018-06-23] MEDS: NA CHLORIDE 0.9% 1,000 ML IV SCH (22:17)
[2018-06-23 23:49] LABS: Troponin I 0.99 ng/mL (0.0-0.045)
[2018-06-24] MEDS: NA CHLORIDE 0.9% 1,000 ML IV SCH ×4 (04:00→21:00)
[2018-06-24 04:39] LABS: Troponin I 0.94 ng/mL (0.0-0.045)
[2018-06-24 05:45] LABS: Arterial Blood Carboxyhemoglob 1.2 % (0-1.5); Blood Gas Oxyhemoglobin 97.5 % (94-97); Blood O2 Saturation 99.3 % (92-98.5)
[2018-06-24 06:08] LABS: Bilirubin Total 0.8 mg/dL (0.2-1.0); Magnesium 1.9 mg/dL (1.8-2.4); Phosphorus 3.3 mg/dL (2.5-4.9); Potassium 4.1 mmol/L (3.5-5.1); Protein, Total 5.9 g/dL (6.4-8.2)
[2018-06-24 06:38] LABS: Absolute Lymphocytes (CBC) 1.2 K/uL (0.7-4.9); Absolute Monocytes 0.7 K/uL (0.1-1.3); Absolute Neutrophil 7.5 K/uL (1.8-8.0); Basophils % 0.1 % (0-1.3); Eosinophils % 0.7 % (0-4.4); Hematocrit 32.5 % (39.6-49.0); Lymphocytes % 12.6 % (15.3-44.8); MCH 34.2 pg (27.0-35.0); MCV 98.4 fL (80-100); MPV 8.2 fL (7.6-11.3); Monocytes % 7.8 % (3.3-12.3); RBC Red Blood Cell Count 3.31 M/uL (4.33-5.43)
--- NOTE | 2018-06-24 07:20 | P.PN ---
Subjective Date of Service: 06/23/18 Patient's chart was reviewed. Patient had a cardiac arrest. Bystander CPR and defibrillation with an AED device. Patient was brought into the emergency room and intubated. Patient has been on sedation since then. Currently he is waking up in arousable. Will go ahead and switch him over to SIMV and then do a spontaneous breathing trial in the morning and hopefully we can extubate. He has had a couple runs of nonsustained V-tach. Cardiology consultation pending as patient may probably need further intervention including cardiac catheterization. EKG with some mild QT prolongation. Will monitor medications given. Review of Systems 10-point ROS is otherwise unremarkable (Sedated and intubated) Physical Examination - Vital Signs Temperature: 99.9 F Blood Pressure: 105/77 Pulse: 68 Respirations: 14 Pulse Ox (%): 100 - Physical Exam General: Other (Sedated & intubated) Respiratory: Clear to auscultation bilaterally, Normal air movement Cardiovascular: Regular rate/rhythm, Normal S1 S2, No murmurs Gastrointestinal: Soft and benign, Non-distended Musculoskeletal: No clubbing, No swelling, No contractures - Studies Laboratory Data (last 24 hrs) 06/23/18 13:20: PT 11.7, INR 0.99, APTT 25.7 06/23/18 13:20: WBC 9.0, Hgb 12.3 L, Hct 36.2 L, Plt Count 189 06/23/18 13:20: Sodium 140, Potassium 4.0, BUN 19 H, Creatinine 1.60 H, Glucose 229 H, Magnesium 1.9, Troponin I 0.06 H 06/23/18 13:18: PT Cancelled, INR Cancelled, APTT Cancelled 06/23/18 13:18: WBC Cancelled, Hgb Cancelled, Hct Cancelled, Plt Count Cancelled 06/23/18 13:18: Sodium Cancelled, Potassium Cancelled, BUN Cancelled, Creatinine Cancelled, Glucose Cancelled, Magnesium Cancelled Assessment & Plan - Problems (Diagnosis) (1) Acute respiratory failure Current Visit: Yes Status: Acute Qualifiers: Respiratory failure complication: hypoxia Qualified Code(s): J96.01 - Acute respiratory failure with hypoxia (2) Cardiopulmonary arrest Current Visit: Yes Status: Acute (3) HTN (hypertension) Current Visit: Yes Status: Chronic Qualifiers: Hypertension type: essential hypertension Qualified Code(s): I10 - Essential (primary) hypertension - Plan Plan: 1. Spontaneous breathing trial in the morning 2. Wean off of propofol 3. Cardiology consultation 4. Monitor electrolytes 5. Patient may need defibrillator placed pending cardiology workup 6. GI and DVT prophylaxis Discharge Plan: Home Plan to discharge in: Greater than 2 days - Advance Directives Does patient have a Living Will: No Does patient have a Durable POA for Healthcare: No - Code Status/Comfort Care Code Status Assessed: Yes Code Status: Full Code Critical Care: Yes Time Spent Managing PTS Care (In Minutes): 45
[2018-06-24] MEDS: LORazepam 2 MG/ML VIAL IV PRN ×2 (07:26→13:15)
[2018-06-24] MEDS: INSULIN -REGULAR HUMAN 50 UNIT/0.5 ML ML SQ SCH ×4 (07:30→18:00)
[2018-06-24] MEDS ORDERED: D5W 250 ML IV SCH (08:00)
--- NOTE | 2018-06-24 08:11 | RAD REPORT ---
EXAM DESCRIPTION: RAD - Chest Single View - 06/24/2018 6:16 am CLINICAL HISTORY: Intubated-F/U Chest pain. COMPARISON: Chest Single View dated 06/23/2018 FINDINGS: Portable technique limits examination quality. Since the most recent comparative study, improvement in lung aeration is noted. Tip of the ET tube is above the shelbie. Enteric tube coils in the stomach. The heart is normal in size. No displaced fract ures. IMPRESSION: Moderate improvement in lung aeration seen since the comparative study.
--- NOTE | 2018-06-24 08:29 | EKG ---
Test Date: 2018-06-23 Test Time: 16:03:49 Poultry Raiser: SULMA MEASUREMENT RESULTS: Intervals: Rate: 77 IN: 160 QRSD: 74 QT: 402 QTc: 454 [place]: P: 77 IN: 160 QRS: -1 T: 43 INTERPRETIVE STATEMENTS: Normal sinus rhythm Normal ECG Compared to ECG 06/23/2018 13:21:38 Atrial premature complex(es) no longer present ST (T wave) deviation no longer present Possible ischemia no longer present Prolonged QT interval no longer present Electronically Signed On 06-24-18 08:28:53 INFANT CAREGIVER by Geoffrey Velez
--- NOTE | 2018-06-24 08:31 | EKG ---
Test Date: 2018-06-23 Test Time: 13:21:38 Director Economic: ZACARIAS MEASUREMENT RESULTS: Intervals: Rate: 94 OK: 156 QRSD: 76 QT: 378 QTc: 472 [place]: P: -22 OK: 156 QRS: 69 T: -31 INTERPRETIVE STATEMENTS: Sinus rhythm with premature supraventricular complexes ST & T wave abnormality, consider inferior ischemia Prolonged QT Abnormal ECG No previous ECG available for comparison Electronically Signed On 06-24-18 08:31:20 COMMERCIAL ADMINISTRATOR by Geoffrey Velez
[2018-06-24] MEDS ORDERED: AMIODARONE HCL 150 MG in D5W 100 ML IV STA (09:00)
[2018-06-24] MEDS ORDERED: AMIODARONE HCL 450 MG in D5W 241 ML IV SCH (09:00)
[2018-06-24] MEDS: ENOXAPARIN 80 MG/0.8 ML SQ SCH (09:00)
--- NOTE | 2018-06-24 09:00 | P.CNS ---
Date of Consult: 06/24/18 Primary Care Provider: Unknown Chief Complaint: Cardiopulomary Arrest History of Present Illness: Patient is 72 years of age admitted with a witnessed cardiac arrest he was cardioverted in [place] currently doing better had an episode of V-tach last night to be seen by Cardiology stable alert responsive cooperative no other medical information available chart reviewed is currently intubated Allergies Unable to Assess Allergy (Unverified 06/23/18 20:22) Home Medications: Allopurinol 300 mg PO DAILY 06/23/18 - Past Medical/Surgical History -: Gout -: Asthma -: HTN - Social History Smoking Status: Unknown if ever smoked Place of Residence: Home Review of Systems is unable to be obtained Physical Examination Temp Pulse Resp BP Pulse Ox 99.9 F 68 14 105/77 100 06/24/18 07:19 06/24/18 07:19 06/24/18 07:19 06/24/18 07:19 06/24/18 07:19 General: Cooperative Neck: Supple Respiratory: Clear to auscultation bilaterally Cardiovascular: No edema, Normal S1 S2 Laboratory Data (last 24 hrs) 06/23/18 13:20: PT 11.7, INR 0.99, APTT 25.7 06/23/18 13:20: WBC 9.0, Hgb 12.3 L, Hct 36.2 L, Plt Count 189 06/23/18 13:20: Sodium 140, Potassium 4.0, BUN 19 H, Creatinine 1.60 H, Glucose 229 H, Magnesium 1.9, Troponin I 0.06 H 06/23/18 13:18: PT Cancelled, INR Cancelled, APTT Cancelled 06/23/18 13:18: WBC Cancelled, Hgb Cancelled, Hct Cancelled, Plt Count Cancelled 06/23/18 13:18: Sodium Cancelled, Potassium Cancelled, BUN Cancelled, Creatinine Cancelled, Glucose Cancelled, Magnesium Cancelled - Problems (1) Cardiopulmonary arrest Current Visit: Yes Status: Acute Plan: Patient is 72 years of age admitted with cardiopulmonary arrest status post automatic a defibrillator in the [place] and he is doing better alert responsive cooperative labs all reviewed chest x-ray clear patient had 2 episodes of V- tach cardiac evaluation pending chest x-rays clear patient's troponin is elevated echocardiogram pending no obvious ischemic changes on his EKG. Will start patient on amiodarone possible wean and extubate vital signs are all stable
[2018-06-24] MEDS: FAMOTIDINE 20 MG/2 ML VIAL IV SCH (09:27)
--- NOTE | 2018-06-24 11:13 | RAD REPORT ---
EXAM DESCRIPTION: CT - Chest For Pe Angio - 06/24/2018 11:06 am CLINICAL HISTORY: Chest pain. R/O PE COMPARISON: Chest Single View dated 06/24/2018; Chest Single View dated 06/23/2018 TECHNIQUE: CT angiogram of the pulmonary arteries was performed with MIP. All CT scans are performed using dose optimization technique as appropriate and may include automated exposure control or mA/KV adjustment according to patient size. FINDINGS: No evidence of pulmonary thromboembolism. No acute aortic finding demonstrated although aortic opacification is somewhat suboptimal. Tip of the ET tube is above the shelbie. Enteric tube descends into the stomach. Airspace opacity in both posterior lung bases is noted, likely representing atelectasis, slightly gre ater on the right. No significant pericardial or pleural fluid. No concerning bony finding. IMPRESSION: No evidence of pulmonary thromboembolism. Posterior bibasilar lung opacities are present, greater on the right, most compatible with atelectasi s.
[2018-06-24 11:37] LABS: Troponin I 0.81 ng/mL (0.0-0.045)
[2018-06-24] MEDS ORDERED: SODIUM CHLORIDE 0.9% 10ML INJ IV PRN (13:05)
--- NOTE | 2018-06-24 14:10 | CON ---
Date of Consultation: 06/24/2018 Reason For Consultation: Cardiac arrest status post CPR and cardioversion electrically. History Of Present Illness: Mr. Garcia's history is not very detailed for now; but according to the records, he seems to be 72 years old, not much in way of past medical history except for gout. Reji calderon only takes allopurinol. Apparently, he was in a sitting position when he was noted to be unrespons sudhir and snoring. EMT was called. The AED device indicated that the patient needed to be shocked. Reji calderon was shocked, brought to the emergency room in normal rhythm, intubated. He is hemodynamically stab le now. His initial blood gas after intubation showed pO2 of 391, pCO2 of 45, pH is 7.3. His creati nine is 1.6, troponin of 0.94, and glucose of 229. He had a negative chest x-ray, negative CT of the head, negative carotid, and echocardiogram is pending. Past Medical History: Not obtainable. Allergies: NOT OBTAINABLE. Review of Systems: Not obtainable. Social History: Not obtainable. Family History: Not obtainable. Physical Examination: General: He appears to be comfortable, awake. Vital Signs: Stable. Sinus rhythm. Occasional short run of ventricular tachycardia. HEENT: Negative. Neck: Supple with no bruit. Chest: Reveals some rales, both bases. Cardiac: Revealed a regular rhythm and rate. No murmurs, gallops, or rubs. Abdomen: Benign. Extremities: Revealed trace edema. Diagnostic Data: As stated earlier. Impression And Plan: 1.Cardiac arrest, most likely secondary to arrhythmia from ischemia. 2.Elevated troponin consistent with zhm-BY-nqxxymrbs myocardial infarction. 3.Status post intubation. 4.Renal insufficiency, stage 3. 5.Possible new-onset diabetes. The patient has waken up. Hopefully, he will be extubated today. Dr. Salmeron is helping in his res piratory care. There is an echocardiogram pending. Certainly once he wakes up and he is able to connor erate a heart catheterization, we will do that. I am hoping that we will do that on Wednesday morning. For now, continue his present regimen. Once he is able to take p.o., he should be on a baby aspirin , low-dose beta-chaparro, and an FIRDA inhibitor. CHRIS/MARIA ALEJANDRA Voice ID: [id number] Report ID: [id number]
--- NOTE | 2018-06-24 15:05 | P.PN ---
Subjective Date of Service: 06/24/18 Primary Care Provider: Unknown Chief Complaint: Cardiopulomary Arrest Patient seen and examined at bedside with RN. Chart reviewed. Case discussed with cardiology and pulmonology at this time. Patient is doing well overall still remains intubated. Currently weaning off of sedation. Will attempt extubation today if patient is able to tolerate. Last night patient had 2 runs of V-tach for 5-6 seconds Review of Systems 10-point ROS is otherwise unremarkable Physical Examination - Vital Signs Temperature: 99.4 F Blood Pressure: 114/68 Pulse: 64 Respirations: 15 Pulse Ox (%): 99 - Physical Exam General: In no apparent distress, Other (Intubated and sedated this time) HEENT: Atraumatic, PERRLA, EOMI Neck: Supple, JVD not distended Respiratory: Normal air movement, Rhonchi/gurgles Cardiovascular: Regular rate/rhythm, Normal S1 S2 Gastrointestinal: Normal bowel sounds, No tenderness Musculoskeletal: No tenderness Integumentary: No rashes Neurological: Normal tone, Cranial nerves 3-12 intact, Normal reflexes 2+ Lymphatics: No axilla or inguinal lymphadenopathy - Studies Laboratory Data (last 24 hrs) 06/23/18 13:18: PT Cancelled, INR Cancelled, APTT Cancelled 06/23/18 13:18: WBC Cancelled, Hgb Cancelled, Hct Cancelled, Plt Count Cancelled 06/23/18 13:18: Sodium Cancelled, Potassium Cancelled, BUN Cancelled, Creatinine Cancelled, Glucose Cancelled, Magnesium Cancelled Medications List Reviewed: Yes Assessment And Plan - Current Problems (Diagnosis) (1) Cardiopulmonary arrest Onset Date: 06/24/18 Current Visit: Yes Status: Acute Plan: Witness cardiopulmonary arrest with successful resuscitation. -patient currently intubated and sedated. -pulmonology consulted. Appreciated Reccs -Wean off the Vent and Sedation if tolerating today -Cardiology consulted. Appreciate Reccs -cath Once Extubated -PO asa, BB and FRIDA inhibitor -CT scan of the chest negative for PE. -MRI Brain to be done once patient is extubated. -Echo is pending at this time as well -will continue to monitor patient closely -started on aspirin beta-chaparro and FRIDA-inhibitor (2) Acute respiratory failure Onset Date: 06/24/18 Current Visit: Yes Status: Acute Plan: Hypoxic respiratory failure status post cardiopulmonary arrest status post shock x1 with successful resuscitation -See # 1 Qualifiers: Respiratory failure complication: hypoxia Qualified Code(s): J96.01 - Acute respiratory failure with hypoxia (3) HTN (hypertension) Onset Date: 06/24/18 Current Visit: Yes Status: Chronic Qualifiers: Hypertension type: essential hypertension Qualified Code(s): I10 - Essential (primary) hypertension - Plan Pending neuro improvement at this time. Will try to wean off the patient to nasal cannula and extubate. Will await further imaging and lab work at this time
--- NOTE | 2018-06-24 15:16 | ECHO ---
HEIGHT: 6 ft 0 in WEIGHT: 174 lb 12.8 oz DATE OF STUDY: 06/24/[address]: Janel Arauz MD 2-DIMENSIONAL: YES M.MODE: YES DOPPLER: YES COLOR FLOW: YES TDS: YES PORTABLE: NO DEFINITY: NO BUBBLE STUDY: NO DIAGNOSIS: CARDIAC ARREST CARDIAC HISTORY: CATHERIZATION: NO SURGERY: NO PROSTHETIC VALVE: NO PACEMAKER: NO MEASUREMENTS (cm) DIASTOLIC (NORMALS) SYSTOLIC (NORMALS) IVSd 1.1 (0.6-1.2) LA Diam (1.9-4.0) LVEF 45% LVIDd 5.1 (3.5-5.7) LVIDs 3.9 (2.0-3.5) %FS 22% LVPWd 1.3 (0.6-1.2) Ao Diam 3.3 (2.0-3.7) 2 DIMENSIONAL ASSESSMENT: RIGHT ATRIUM: NORMAL LEFT ATRIUM: NORMAL RIGHT VENTRICLE: NORMAL LEFT VENTRICLE: LEFT VENTRICULAR HYPERTROPHY TRICUSPID VALVE: NORMAL MITRAL VALVE: NORMAL PULMONIC VALVE: NORMAL AORTIC VALVE: SCLEROSIS PERICARDIAL EFFUSION: NONE AORTIC ROOT: NORMAL LEFT VENTRICULAR WALL MOTION: MILD GLOBAL HYPOKINESIS DOPPLER/COLOR FLOW: NORMAL COMMENTS: MILD GLOBAL HYPOKINESIS- EJECTION FRACTION 45%. LEFT VENTRICULAR HYPERTROPHY. AORTIC SCLEROSIS. NO EFFUSION. TECHNOLOGIST: HUMBERTO LEAHY
[2018-06-24] MEDS: METOPROLOL TAR 25 MG TAB PO SCH (15:29)
[2018-06-24] MEDS: LISINOPRIL 5 MG TAB PO SCH (15:29)
[2018-06-24] MEDS: PANTOPRAZOLE 40 MG INJ IVP SCH (20:03)
[2018-06-25 05:38] LABS: Absolute Lymphocytes (CBC) 1.1 K/uL (0.7-4.9); Absolute Monocytes 0.9 K/uL (0.1-1.3); Absolute Neutrophil 9.3 K/uL (1.8-8.0); Basophils % 0.2 % (0-1.3); Eosinophils % 0.5 % (0-4.4); Hematocrit 33.3 % (39.6-49.0); Lymphocytes % 9.4 % (15.3-44.8); MCH 33.9 pg (27.0-35.0); MCV 97.7 fL (80-100); MPV 8.3 fL (7.6-11.3); Monocytes % 7.9 % (3.3-12.3); RBC Red Blood Cell Count 3.41 M/uL (4.33-5.43)
[2018-06-25] MEDS: METOPROLOL TAR 25 MG TAB PO SCH ×2 (05:41→17:28)
[2018-06-25] MEDS: NA CHLORIDE 0.9% 1,000 ML IV SCH ×3 (05:41→20:53)
[2018-06-25 05:52] LABS: Albumin 2.9 g/dL (3.4-5.0); Phosphorus 2.7 mg/dL (2.5-4.9); Potassium 4.1 mmol/L (3.5-5.1); Protein, Total 6.3 g/dL (6.4-8.2)
[2018-06-25] MEDS: INSULIN -REGULAR HUMAN 50 UNIT/0.5 ML ML SQ SCH ×5 (06:00→20:53)
[2018-06-25] MEDS: LISINOPRIL 5 MG TAB PO SCH (08:39)
[2018-06-25] MEDS: PANTOPRAZOLE 40 MG INJ IVP SCH ×2 (08:39→20:52)
--- NOTE | 2018-06-25 12:19 | P.PN ---
Subjective Date of Service: 06/25/18 Primary Care Provider: Unknown Chief Complaint: Cardiopulomary Arrest Patient seen and examined at bedside with RN. Chart reviewed. Case discussed with cardiology and pulmonology at this time. Now extubated doing well. no c/o overall Review of Systems 10-point ROS is otherwise unremarkable Physical Examination - Vital Signs Temperature: 99.3 F Blood Pressure: 115/69 Pulse: 81 Respirations: 22 Pulse Ox (%): 99 - Physical Exam General: Alert, In no apparent distress HEENT: Atraumatic, PERRLA, EOMI Neck: Supple, JVD not distended Respiratory: Clear to auscultation bilaterally, Normal air movement Cardiovascular: Regular rate/rhythm, Normal S1 S2 Gastrointestinal: Normal bowel sounds, No tenderness Musculoskeletal: No tenderness Integumentary: No rashes Neurological: Normal speech, Normal tone, Normal affect Lymphatics: No axilla or inguinal lymphadenopathy - Studies Medications List Reviewed: Yes Assessment And Plan - Current Problems (Diagnosis) (1) Cardiopulmonary arrest Onset Date: 06/24/18 Current Visit: Yes Status: Acute Plan: Witness cardiopulmonary arrest with successful resuscitation. Now resolved -patient currently Extubated and doing well on RA -pulmonology consulted. Appreciated Reccs -Cardiology consulted. Appreciate Reccs -cath once stable -PO asa, BB and FRIDA inhibitor -CT scan of the chest negative for PE. -MRI Brain pending -Echo is pending at this time as well -will continue to monitor patient closely -started on aspirin beta-chaparro and FRIDA-inhibitor (2) Acute respiratory failure Onset Date: 06/24/18 Current Visit: Yes Status: Acute Plan: Hypoxic respiratory failure status post cardiopulmonary arrest status post shock x1 with successful resuscitation. Now Resolved -See # 1 Qualifiers: Respiratory failure complication: hypoxia Qualified Code(s): J96.01 - Acute respiratory failure with hypoxia (3) HTN (hypertension) Onset Date: 06/24/18 Current Visit: Yes Status: Chronic Qualifiers: Hypertension type: essential hypertension Qualified Code(s): I10 - Essential (primary) hypertension - Plan Pending Cath, MRI and Clinical Improvement Discharge Plan: Home Plan to discharge in: 48 Hours - Code Status/Comfort Care Code Status Assessed: Yes Critical Care: No
[2018-06-25] MEDS: ACETAMINOPHEN 500 MG TAB PO PRN (17:29)
[2018-06-26 05:37] LABS: Absolute Lymphocytes (CBC) 1.6 K/uL (0.7-4.9); Absolute Neutrophil 8.6 K/uL (1.8-8.0); Basophils % 0.3 % (0-1.3); Eosinophils % 0.5 % (0-4.4); Lymphocytes % 14.1 % (15.3-44.8); MCH 33.9 pg (27.0-35.0); MCV 97.9 fL (80-100); MPV 8.3 fL (7.6-11.3); Monocytes % 9.3 % (3.3-12.3); RBC Red Blood Cell Count 3.37 M/uL (4.33-5.43)
[2018-06-26 05:57] LABS: Albumin 2.7 g/dL (3.4-5.0); Bilirubin Total 0.8 mg/dL (0.2-1.0); Magnesium 1.8 mg/dL (1.8-2.4); Phosphorus 2.1 mg/dL (2.5-4.9); Potassium 3.9 mmol/L (3.5-5.1); Protein, Total 6.2 g/dL (6.4-8.2)
[2018-06-26] MEDS ORDERED: MAGNESIUM SULFATE 1 gm IVPB 1 GM/100 ML BAG IV ONE (06:03)
[2018-06-26] MEDS: METOPROLOL TAR 25 MG TAB PO SCH ×2 (06:34→17:51)
[2018-06-26] MEDS: INSULIN -REGULAR HUMAN 50 UNIT/0.5 ML ML SQ SCH ×4 (07:30→20:32)
[2018-06-26] MEDS: NA CHLORIDE 0.9% 1,000 ML IV SCH ×2 (08:12→20:26)
[2018-06-26] MEDS: LISINOPRIL 5 MG TAB PO SCH (08:13)
[2018-06-26] MEDS: PANTOPRAZOLE 40 MG INJ IVP SCH ×2 (08:13→20:27)
--- NOTE | 2018-06-26 08:52 | PN ---
Subjective: The patient is resting. Objective: Vital Signs; 98.9, 86, 123/69, sats 94%. I's and O's 1500 in and 1650 out for -150. Assessment: Status post cardiac arrest, status post Garcia placement with slight hematuria, now clear . Plan: May discontinue or continue Garcia catheter, depends on medical team. SLICK/MARIA ALEJANDRA Voice ID: [id number] Report ID: [id number]
[2018-06-26] MEDS ORDERED: POTASSIUM PHOS IN 0.9 % NACL 15 MMOL/250 ML BAG IV ONE (09:00)
--- NOTE | 2018-06-26 13:33 | P.PN ---
Subjective Date of Service: 06/26/18 Primary Care Provider: Unknown Chief Complaint: Cardiopulomary Arrest Patient seen and examined at bedside with RN. Chart reviewed. Case discussed with cardiology and pulmonology at this time. Now extubated doing well. Scheduled for Cath Timbo AM Review of Systems 10-point ROS is otherwise unremarkable Physical Examination - Vital Signs Temperature: 98.7 F Blood Pressure: 124/70 Pulse: 79 Respirations: 20 Pulse Ox (%): 96 - Physical Exam General: Alert, In no apparent distress HEENT: Atraumatic, PERRLA, EOMI Neck: Supple, JVD not distended Respiratory: Clear to auscultation bilaterally, Normal air movement Cardiovascular: Regular rate/rhythm, Normal S1 S2 Gastrointestinal: Normal bowel sounds, No tenderness Musculoskeletal: No tenderness Integumentary: No rashes Neurological: Normal speech, Normal tone, Normal affect Lymphatics: No axilla or inguinal lymphadenopathy - Studies Medications List Reviewed: Yes Assessment And Plan - Current Problems (Diagnosis) (1) Cardiopulmonary arrest Onset Date: 06/24/18 Current Visit: Yes Status: Acute Plan: Witness cardiopulmonary arrest with successful resuscitation. Now resolved -patient currently Extubated and doing well on RA -pulmonology consulted. Appreciated Reccs -Cardiology consulted. Appreciate Reccs -cath Timbo AM -PO asa, BB and FRIDA inhibitor -CT scan of the chest negative for PE. -MRI Brain pending -Echo is pending -will continue to monitor patient closely -started on aspirin beta-chaparro and FRIDA-inhibitor (2) Acute respiratory failure Onset Date: 06/24/18 Current Visit: Yes Status: Acute Plan: Hypoxic respiratory failure status post cardiopulmonary arrest status post shock x1 with successful resuscitation. Now Resolved -See # 1 Qualifiers: Respiratory failure complication: hypoxia Qualified Code(s): J96.01 - Acute respiratory failure with hypoxia (3) HTN (hypertension) Onset Date: 06/24/18 Current Visit: Yes Status: Chronic Qualifiers: Hypertension type: essential hypertension Qualified Code(s): I10 - Essential (primary) hypertension - Plan Pending Cath, MRI and Clinical Improvement Discharge Plan: Home Plan to discharge in: 48 Hours - Code Status/Comfort Care Code Status Assessed: Yes Critical Care: No
[2018-06-26] MEDS: ACETAMINOPHEN 500 MG TAB PO PRN ×2 (17:59→23:48)
[2018-06-27] MEDS ORDERED: MORPHINE 2 MG/ML SYR IV ONE (01:25)
[2018-06-27] MEDS: METOPROLOL TAR 25 MG TAB PO SCH ×2 (05:07→18:05)
[2018-06-27] MEDS: NA CHLORIDE 0.9% 1,000 ML IV SCH ×2 (05:08→19:00)
[2018-06-27 05:43] LABS: Magnesium 2.1 mg/dL (1.8-2.4); Phosphorus 2.7 mg/dL (2.5-4.9)
--- NOTE | 2018-06-27 05:56 | PN ---
Date of Progress Note: 06/25/2018 Mr. Garcia has been admitted after a cardiac arrest and positive troponin. Echocardiogram showed an ejection fraction about 45% with mild global hypokinesis. He has been extubated. He is now on t he floor in telemetry unit. He is not complaining of chest pain. His mental status is almost back t o normal. He has still some short memory lapses. he is not showing any signs of congestiv e heart failure clinically. We will plan to do a heart catheterization on him earlier next week connie use of his cardiac arrest and elevated troponin. He understands the risks and the benefits of the pr ocedure and he agreed to proceed. CHRIS/MARIA ALEJANDRA Voice ID: [id number] Report ID: [id number]
--- NOTE | 2018-06-27 06:11 | PN ---
Date of Progress Note: 06/26/2018 Mr. Garcia remained on telemetry unit. He is approximately 72 hours now status post cardiac arre st, subendocardial CT. An ejection fraction of 40-45%, mild global hypokinesis. He remained asympto matic. Mental status has gone back to normal. Telemetry is normal now. Initially he was having dior rt runs of ventricular tachycardia. Mr. Garcia needs to have his Lovenox held for catheterizatio n on 06/27/2018. He should be on a statin and a baby aspirin. CHRIS/MARIA ALEJANDRA Voice ID: [id number] Report ID: [id number]
[2018-06-27] MEDS: MORPHINE 2 MG/ML SYR IV PRN ×2 (07:13→14:22)
[2018-06-27] MEDS: INSULIN -REGULAR HUMAN 50 UNIT/0.5 ML ML SQ SCH ×3 (07:30→16:30)
[2018-06-27] MEDS ORDERED: HEPA 1000U/500MLS 2,000 UNIT/1,000 ML BAG IV ONE (08:36)
[2018-06-27] MEDS ORDERED: NICARDIPINE HCL 25 MG/10 ML IV ONE (09:38)
[2018-06-27] MEDS ORDERED: HEPARIN 5000 UNIT/ML 1 ML VIAL ONE (09:38)
[2018-06-27] MEDS ORDERED: FENTANYL CITR 100 MCG/2 ML ONE (09:38)
[2018-06-27] MEDS ORDERED: MIDAZOLAM HCL 2 MG/2 ML INJ ONE (09:38)
[2018-06-27] MEDS ORDERED: NITROGLYCERIN 100 MCG/ML SYR (for cath lab use only) IV ONE (09:39)
[2018-06-27] MEDS ORDERED: NA CHLORIDE 0.9% 0 ML ONE (09:39)
[2018-06-27] MEDS ORDERED: ATROPINE SULF 1 MG/10 ML SYR IV ONE (09:39)
[2018-06-27] MEDS ORDERED: ACETAMINOPHEN 325 MG TABLET PO PRN (13:53)
[2018-06-27] MEDS ORDERED: NITROGLYCERIN 0.4 MG/TAB SL PRN (13:53)
[2018-06-27] MEDS ORDERED: NA CHLORIDE 0.9% 1,000 ML IV SCH (14:00)
[2018-06-27] MEDS: PANTOPRAZOLE 40 MG INJ IVP SCH (14:24)
[2018-06-27] MEDS: LISINOPRIL 5 MG TAB PO SCH (14:25)
--- NOTE | 2018-06-27 14:40 | P.DS ---
Admission Date: 06/23/18 Discharge Date: 06/27/18 Primary Care Provider: Unknown Reason for Admission: Cardiopulomary Arrest Consultations: Cardiology Pulmonology Nephrology - Problems (1) Cardiopulmonary arrest Onset Date: 06/24/18 Current Visit: Yes Status: Acute (2) Acute respiratory failure Onset Date: 06/24/18 Current Visit: Yes Status: Acute Qualifiers: Respiratory failure complication: hypoxia Qualified Code(s): J96.01 - Acute respiratory failure with hypoxia (3) HTN (hypertension) Onset Date: 06/24/18 Current Visit: Yes Status: Chronic Qualifiers: Hypertension type: essential hypertension Qualified Code(s): I10 - Essential (primary) hypertension Brief History of Present Illness: This is a 72-year-old male with unknown past medical history who presented to the ER, the nearby charge. Most of the history was collected via the ER physician and the EMS report along with the family member at bedside. Patient was noted to be at the druze this afternoon where he had a witness cardiopulmonary arrest CPR was initiated by a bystander due to no pulse on an AED pad was connected to the patient. He d advised for a shock and patient was given an shock x1 in the chart. EMS then arrived at the scene where patient is GCS was less than 3 and patient was thus intubated at that time. Patient then was brought to the ER for further care. Patient does not have any other family member other than his [id number] at bedside at this time. Patient's in December of cancer. Patient was doing okay and was in general health according to the family member at bedside. In the ER patient remained intubated and sedated. Initial lab work was inconclusive and patient was admitted to the hospital for further workup and treatment for is cardiopulmonary arrest. Hospital Course: Overall during the hospital stay patient remained stable Patient was initially admitted to the hospital after having successful cardiopulmonary assessment resuscitation. Patient was initially kept in ICU. Patient had initial acute respiratory failure was intubated and sedated. Patient was able to be extubated successfully here after sedation was stopped. Patient did not have any complication after the extubation. Patient had imaging and lab work done here to rule out PE and other causes of cardiopulmonary arrest. Cardiology and pulmonology was consulted. Patient had a cardiac catheterization done here in the hospital which was positive for ear stenosis. Patient thus needed to be transferred to [facility] she CABG. Patient was accepted at [facility] and thus was transferred over there for further workup. For patient's acute respiratory failure as mentioned above patient was kept intubated initially and was extubated once he was weaned off of propofol. Patient did well after a stay patient did not have any complication during the hospital visit All other chronic conditions remained stable while here in the hospital Vital Signs/Physical Exam: Temp Pulse Resp BP Pulse Ox 98.9 F 77 20 144/82 H 97 06/27/18 11:41 06/27/18 14:25 06/27/18 11:41 06/27/18 14:25 06/27/18 08:00 General: Alert, In no apparent distress HEENT: Atraumatic, PERRLA, EOMI Neck: Supple, JVD not distended Respiratory: Clear to auscultation bilaterally, Normal air movement Cardiovascular: Regular rate/rhythm, Normal S1 S2 Gastrointestinal: Normal bowel sounds, No tenderness Musculoskeletal: No tenderness Integumentary: No rashes Neurological: Normal speech, Normal tone, Normal affect Lymphatics: No axilla or inguinal lymphadenopathy Laboratory Data at Discharge: WBC 11.3 K/uL (4.3-10.9) H 06/26/18 04:10 Hgb 11.4 g/dL (13.6-17.9) L 06/26/18 04:10 Hct 33.0 % (39.6-49.0) L 06/26/18 04:10 Plt Count 163 K/uL (152-406) 06/26/18 04:10 PT 11.7 SECONDS (9.5-12.5) 06/23/18 13:20 INR 0.99 06/23/18 13:20 APTT 27.6 SECONDS (24.3-36.9) 06/26/18 04:10 Sodium 144 mmol/L (136-145) 06/27/18 04:15 Potassium 4.0 mmol/L (3.5-5.1) 06/27/18 04:15 BUN 16 mg/dL (7-18) 06/27/18 04:15 Creatinine 1.10 mg/dL (0.55-1.3) 06/27/18 04:15 Glucose 99 mg/dL (74-106) 06/27/18 04:15 Phosphorus 2.7 mg/dL (2.5-4.9) 06/27/18 04:15 Magnesium 2.1 mg/dL (1.8-2.4) 06/27/18 04:15 Total Bilirubin 0.8 mg/dL (0.2-1.0) 06/26/18 04:10 AST 20 U/L (15-37) 06/26/18 04:10 ALT 23 U/L (12-78) 06/26/18 04:10 Alkaline Phosphatase 65 U/L (45-117) 06/26/18 04:10 Troponin I 0.81 ng/mL (0.0-0.045) H* 06/24/18 10:43 Triglycerides 117 mg/dL (<150) 06/24/18 05:00 Cholesterol 132 mg/dL (<200) 06/24/18 05:00 HDL Cholesterol 51 mg/dL (40-60) 06/24/18 05:00 Cholesterol/HDL Ratio 2.59 06/24/18 05:00 Home Medications: Allopurinol 300 mg PO DAILY 06/23/18
[2018-06-27] MEDS: ACETAMINOPHEN 500 MG TAB PO PRN (16:50)
--- NOTE | 2018-06-27 18:01 | PN ---
Subjective: Patient is doing well home. Objective: Vital signs are stable. Laboratory Data: The patient will be able to get a cardiac cath done soon with MRI pending. His Garcia catheter was removed. He said he is voiding well. Therefore, I will be signing off this c ase. Re-consult arun KRUGER/MARIA ALEJANDRA Voice ID: [id number] Report ID: [id number]
--- NOTE | 2018-06-27 20:38 | OP ---
Surgeon: Geoffrey Velez MD Procedures: 1.Left heart catheterization. 2.Coronary left ventricular angiography. Findings: The patient has left main and 3-vessel CAD and he is in need of bypass surgery. He has a normal left ventricular end-diastolic pressure and normal ejection fraction. He has both a left main lesion, ostial circumflex lesion which is contiguous with the left main, mid LAD subtotal and diffus e RCA stenosis. In general, the arteries are diffusely diseased, both stenotic, ectatic, and heavily calcified. Procedure In Detail: The patient was brought to the cardiac cathead worker in a fasting state, sedated wit h Versed and fentanyl, prepared and draped in usual sterile fashion for right radial approach. His r ight radial artery entered with a 21-gauge needle, cannulated with a 0.021-inch diameter guidewire. This was used to place a 6-Malay Terumo radial sheath. The sheath was flushed, radial cocktail was given consisting of nicardipine, heparin, nitroglycerin. We used a TIG catheter guided into the asce nding aorta using fluoroscopy and a Glidewire with a short radius J-tip. We used a TIG catheter to a ngiogram right coronary, left coronary, left ventricle. At the end of the procedure, the catheter wa s withdrawn over a wire. Sheath flushed and removed. TR band closed. Arteriotomy closed with a TR band successfully. We removed the right femoral vein catheter because of it being present for 48 jazmine rs and the patient developing infection and fever of unknown origin, so we removed it and cultured th e tip. Complications From The Procedure: None. Estimated Blood Loss: 5 cc. Shale Planer Operator: Rocio Hunter. ROSIO/MARIA ALEJANDRA Voice ID: [id number] Report ID: [id number]
== END 2018-06-27 19:45 | disposition short-term general hospital (02) | DRG 280 ==
LOC: ER 13:15 → ERHOLD 17:52 → 3RD-ICU 20:28 → 4TH 06-25 12:40
PROVIDERS: ADMIT Family Medicine; ATTEND Family Medicine
PROC: 5A1945Z Respiratory Ventilation, 24-96 Consecutive Hours (ICD-10-PCS; principal; 2018-06-23)
PROC: 02HV33Z Insertion of Infusion Device into Superior Vena Cava, Percutaneous Approach (ICD-10-PCS; 2018-06-23)
PROC: 4A023N7 Measurement of Cardiac Sampling and Pressure, Left Heart, Percutaneous Approach (ICD-10-PCS; 2018-06-27)
PROC: B211YZZ Fluoroscopy of Multiple Coronary Arteries using Other Contrast (ICD-10-PCS; 2018-06-27)
PROC: B215YZZ Fluoroscopy of Left Heart using Other Contrast (ICD-10-PCS; 2018-06-27)
DX: I21.4 Non-ST elevation (NSTEMI) myocardial infarction (principal); I46.2 Cardiac arrest due to underlying cardiac condition; J96.01 Acute respiratory failure with hypoxia; I47.2 Ventricular tachycardia; M10.9 Gout, unspecified; I10 Essential (primary) hypertension; I25.10 Atherosclerotic heart disease of native coronary artery without angina pectoris; I25.84 Coronary atherosclerosis due to calcified coronary lesion
CPT/HCPCS: 36415; 51702; 70450; 71045; 71275; 80048; 80053; 80061; 81003; 81015; 82550; 82805; 82962; 83605; 83735; 84100; 84145; 84443; 84484; 85025; 85610; 85730; 87040; 87070; 87086; 87088; 92950; 93005; 93306; 93458; 93880; 94002; 99291; 99292; C1893; C9113; J0282; J0583; J1644; J1650; J2250; J2270; J2704; J3010; J3475; J7030; J7060; Q9967